=== PATIENT | female | born 1970 | race Caucasian/White ===

== ENCOUNTER → 2019-05-13 09:31 | Outpatient (BNVA) | payer OTHER, SELFPAY | PROVIDERS: Family Provider Nurse Practitioner; PCP Nurse Practitioner; Visit Provider Otolaryngology | DX: R26.89 Other abnormalities of gait and mobility (principal); H91.92 Unspecified hearing loss, left ear; F17.210 Nicotine dependence, cigarettes, uncomplicated | CPT/HCPCS: 99213; 99214 ==

== ENCOUNTER 2019-05-13 10:39 | Outpatient (REF) | payer OTHER, SELFPAY ==
[2019-05-13 12:01] LABS: Thyroid Stimulating Hormone 0.78 uIU/mL (0.27-4.20)
== END 2019-05-13 10:40 | disposition home or self-care (01) ==
LOC: LAB 10:39
PROVIDERS: Family Provider Nurse Practitioner; PCP Nurse Practitioner; Visit Provider Otolaryngology
DX: Z12.31 Encounter for screening mammogram for malignant neoplasm of breast (principal)
CPT/HCPCS: 36415; 84443

== ENCOUNTER → 2019-07-08 13:39 | Outpatient (BNVA) | payer OTHER, SELFPAY | PROVIDERS: Family Provider Nurse Practitioner; PCP Nurse Practitioner; Visit Provider Nurse Practitioner | DX: R05 Cough (principal); J45.909 Unspecified asthma, uncomplicated | CPT/HCPCS: 87400 ==

== ENCOUNTER 2019-11-28 11:48 | Outpatient (CLI) | payer OTHER, SELFPAY ==
--- NOTE | 2019-11-28 11:56 | XR_ITS ---
WS: [id number] HIP WITH PELVIS LEFT TECHNIQUE: 3 views of the left hip with pelvis CLINICAL INFORMATION: left hip pain COMPARISON: None. FINDINGS: Left hip is normal in appearance. No acute fractures. Normal pubic rami. Proximal left femur is nhung l. XR/XR hip LT 2-3V wo/w pel* [id number] IMPRESSION: Normal left hip.
== END 2019-11-28 11:49 | disposition home or self-care (01) ==
LOC: RADWPI 11:52
PROVIDERS: Family Provider Family Medicine; PCP Family Medicine; Visit Provider Family Medicine
DX: M25.552 Pain in left hip (principal)
CPT/HCPCS: 73502

== ENCOUNTER 2019-11-29 08:53 | Outpatient (CLI) | payer OTHER, SELFPAY | END 2019-11-29 08:54 | disposition home or self-care (01) | LOC: LAB 08:57 | PROVIDERS: Family Provider Family Medicine; PCP Family Medicine; Visit Provider Family Medicine | DX: M25.50 Pain in unspecified joint (principal); M16.12 Unilateral primary osteoarthritis, left hip | CPT/HCPCS: 85025; 85651; 86431 ==

== ENCOUNTER → 2019-12-22 13:22 | Outpatient (BNVA) | payer OTHER, SELFPAY | PROVIDERS: Family Provider Family Medicine; PCP Family Medicine; Referring Provider Family Medicine; Visit Provider Anesthesiology Pain Medicine | DX: M16.12 Unilateral primary osteoarthritis, left hip (principal); M47.816 Spondylosis without myelopathy or radiculopathy, lumbar region; M54.16 Radiculopathy, lumbar region; M54.9 Dorsalgia, unspecified; F17.210 Nicotine dependence, cigarettes, uncomplicated | CPT/HCPCS: 99204 ==

== ENCOUNTER → 2020-01-04 08:49 | Outpatient (BNVA) | payer OTHER, SELFPAY | PROVIDERS: Family Provider Family Medicine; PCP Family Medicine; Visit Provider Anesthesiology Pain Medicine | DX: G89.29 Other chronic pain (principal); M47.816 Spondylosis without myelopathy or radiculopathy, lumbar region; M54.16 Radiculopathy, lumbar region; M16.12 Unilateral primary osteoarthritis, left hip; M25.50 Pain in unspecified joint; M47.812 Spondylosis without myelopathy or radiculopathy, cervical region; M54.9 Dorsalgia, unspecified; F17.210 Nicotine dependence, cigarettes, uncomplicated | CPT/HCPCS: 99213; 99214 ==

== ENCOUNTER 2020-01-09 13:01 | Outpatient (CLI) | payer OTHER, SELFPAY ==
--- NOTE | 2020-01-09 13:06 | MR_ITS ---
WS: [id number] MRI LUMBAR SPINE NONCONTRAST TECHNIQUE: Sagittal T1, T2 and STIR imaging. Axial T1 and T2 imaging. CLINICAL INFORMATION: M54.16 Radiculopathy, lumbar region COMPARISON: None. FINDINGS: Mild lumbar curve. No acute compression. Small disc protrusions in the lower thoracic spine at T10-T1 1 and T11-T12. L1-L2: Normal. L2-L3: Normal. L3-L4: No significant disc bulging. Spinal canal and foramen are patent. Mild facet arthropathy. L4-L5: Small left foraminal protrusion with mild left foraminal narrowing. Right foramen is patent. M oderate facet arthropathy. L5-S1: Mild annular bulging with a tiny right pericentral protrusion. Slight encroachment on the righ t S1 nerve root. Spinal canal and foramen are patent. Mild facet arthropathy. Small disc protrusions in the thoracic spinal production crew supervisor imaging with mild central canal stenosis at T8-9. MR/MR lumbar spine wo con* [id number] IMPRESSION: 1. Mild lumbar curve. No acute compression. No high-grade central canal stenos is. 2. Small left foraminal protrusion L4-5 with mild left foraminal narrowing. 3. Shallow right pericentral protrusion L5-S1 encroaches on the right S1 nerve root. 4. Moderate facet arthropathy L3-L5. 5. Small central protrusions at T10-T11 and T11-T12. Additional small protrusi on at T8-T9 with mild central canal stenosis seen on the production crew supervisor imaging. 6. Partially visualized left ovarian cyst measuring 3.2 CCM. This can be follo wed up with ultrasound.
--- NOTE | 2020-01-09 13:45 | XR_ITS ---
WS: [id number] LUMBAR SPINE FLEXION AND EXTENSION TECHNIQUE: 3 views of the lumbar spine: Lateral neutral, flexion, and extension views. CLINICAL INFORMATION: pain COMPARISON: None. FINDINGS: Normal lumbar alignment on the neutral view. Mild flexion instability L4-5 with anterolisthesis measuring 3.1 mm. Normal alignment on extension. M oderate facet arthropathy L4-L5 and L5-S1. XR/XR lumbar spine f/e only [id number] IMPRESSION: 1. Mild flexion instability L4-5
== END 2020-01-09 13:02 | disposition home or self-care (01) ==
LOC: RADWPI 13:04
PROVIDERS: Family Provider Family Medicine; PCP Family Medicine; Visit Provider Anesthesiology Pain Medicine
DX: M53.2X6 Spinal instabilities, lumbar region (principal); M54.16 Radiculopathy, lumbar region; M51.26 Other intervertebral disc displacement, lumbar region; M51.27 Other intervertebral disc displacement, lumbosacral region; M47.816 Spondylosis without myelopathy or radiculopathy, lumbar region; M51.24 Other intervertebral disc displacement, thoracic region; N83.202 Unspecified ovarian cyst, left side
CPT/HCPCS: 72120; 72148

== ENCOUNTER → 2020-01-24 09:20 | Outpatient (BNVA) | payer OTHER, SELFPAY | PROVIDERS: Family Provider Family Medicine; PCP Family Medicine; Visit Provider Anesthesiology Pain Medicine | DX: G89.29 Other chronic pain (principal); M47.816 Spondylosis without myelopathy or radiculopathy, lumbar region; M51.17 Intervertebral disc disorders with radiculopathy, lumbosacral region; M54.9 Dorsalgia, unspecified; M47.812 Spondylosis without myelopathy or radiculopathy, cervical region; M16.12 Unilateral primary osteoarthritis, left hip; M25.50 Pain in unspecified joint; F17.210 Nicotine dependence, cigarettes, uncomplicated | CPT/HCPCS: 99214 ==

== ENCOUNTER 2020-01-24 12:31 | Emergency (ER) | payer OTHER, SELFPAY ==
[2020-01-24] VITALS (7 sets, daily range): BP systolic 151–193; BP diastolic 93–126; PULSE 67–93; RESP 14–18; TEMP 37.3; O2SAT 92–95; BMI 41.3
--- NOTE | 2020-01-24 13:00 | W.ED.GENADLT ---
HPI - General Adult General: Chief complaint: General Medical Stated complaint: HTN Time Seen by Provider: 01/24/20 12:59 Source: patient Mode of arrival: ambulatory Limitations: no limitations History of Present Illness: HPI narrative: Pt presents with complaints of BUCHANAN, vision disturbances, and elevated BP Onset (ago): day(s) (3) Associated symptoms: Reports headache(s) Review of Systems General: Reports: 10 or more systems reviewed and unremarkable except in HPI and below Eyes: Reports: blurry vision Neuro: Reports: headache(s); Denies: numbness in extremities PFSH ED PFSH: Medical History Anxiety Ataxia Bilateral impacted cerumen Bipolar 1 disorder CAD (coronary artery disease) CAVANAUGH (dyspnea on exertion) Encounter to establish care FH: cholecystectomy Flank pain, acute HTN (hypertension) Mild left ventricular systolic dysfunction Numbness and tingling in both hands ISHA (obstructive sleep apnea) Osteoarthritis of left hip Polyarthralgia PVC (premature ventricular contraction) [place] tick fever Smoker Status post left heart catheterization Surgical History H/O tubal ligation S/P arthroscopic surgery of right knee Family History Father Hypertension Cardiomyopathy Other Diabetes Heart disease Social History Smoking and tobacco status: current every day smoker cigarettes Alcohol intake: current Alcohol intake frequency: other Caregiver/support person: Yes Lives independently: Yes History of recent travel: No Female Reproductive History: Date of last menstrual period: 06/20/19 Physical Exam Const: COMMON NORMALS: no acute distress, patient oriented x3, no limitations and alert GENERAL APPEARANCE: cooperative and comfortable ORIENTATION/CONSCIOUSNESS: Yes awake, Yes oriented to person, Yes oriented to place and Yes oriented to time HENMT: COMMON NORMALS: normocephalic, atraumatic, external ears normal, EAC's normal, TM's normal bilaterally and Normal external nose present HEAD & SCALP: normal to inspection, normocephalic and atraumatic FACE & SINUS: normal facial exam, sinuses nontender and face symmetric NOSE: Normal external nose present, Normal nares present and No nasal discharge present EXTERNAL EAR: Yes external ears normal EXTERNAL AUDITORY CANAL: EAC's normal TYMPANIC MEMBRANE: TM's normal bilaterally MOUTH: Normal oral and palatal mucosa present, lip normal and tongue normal THROAT: posterior oropharynx normal, tonsils normal and uvula midline Eye: COMMON NORMALS: Equal, round and reactive pupils present, EOMs intact bilaterally and conjunctivae normal GENERAL EYE: appearance normal, both eyes and all related structures and normal light reflex EYELID: eyelids normal CONJUNCTIVA: Yes conjunctivae normal PUPIL: Yes Equal, round and reactive pupils present EOM: Yes EOM abnormal DIRECT OPHTHALMOSCOPY: Yes normal light reflex Neck/C-Spine: COMMON NORMALS: full ROM, no lymphadenopathy, supple, no meningeal signs, no JVD and Thyroid normal GENERAL: Yes normal visual inspection THYROID: Thyroid normal CERVICAL SPINE: Yes cervical ROM normal and Yes normal cervical lordosis Lymph: LYMPHATIC: no lymphadenopathy noted Chest: COMMONS NORMALS: normal inspection of the chest and normal palpation of entire chest wall Resp: COMMON NORMALS: normal respiratory effort, No retractions and clear to auscultation bilaterally AUSCULTATION: clear to auscultation bilaterally Cardio: COMMON NORMALS: no JVD, regular rate, regular rhythm, S1 normal heart sound present, S2 normal heart sound present, No gallops present (Cardio), No clicks present (Cardio), No murmurs present (Cardio), No rub (Cardio) and Peripheral pulses 2+ throughout RATE: regular rate RHYTHM: regular rhythm HEART SOUNDS: S1 normal heart sound present and S2 normal heart sound present PERIPHERAL PULSES: Peripheral pulses 2+ throughout GI: COMMON NORMALS: Normal to inspection, nondistended, normoactive bowel sounds present, Soft to palpation, non-tender and no masses PALPATION: Yes Soft to palpation : COMMON NORMALS: Yes no CVA tenderness and Yes normal external appearance BLADDER/KIDNEY EXAM: Yes no CVA tenderness Back/Pelvis: COMMON NORMALS: no CVA tenderness, thoracic and lumbar spine normal to inspection, no thoracic nor lumbar tenderness and thoraco-lumbar ROM normal Extremity: COMMON NORMALS: normal to inspection, full ROM, capillary refill normal, no joint enlargement, no clubbing, cyanosis or edema, no calf tenderness and no pedal edema GENERAL: Yes normal exam except as noted Neuro: COMMON NORMALS: patient oriented x3, moves all extremities, no focal motor deficits, no sensory deficits noted and gait normal SENSORIUM/ORIENTATION: Yes alert, Yes oriented to person, Yes oriented to place and Yes oriented to time MENINGEAL SIGNS: Yes no meningeal signs Psych: COMMON NORMALS: mental status grossly normal, Normal thought process present, cooperative, normal affect, speech normal and activity/motor behavior normal SPEECH: Yes normal speech THOUGHT PROCESS: Normal thought process present Skin: COMMON NORMALS: no rashes or lesions noted, no wounds and turgor normal GENERAL SKIN EXAM: no rashes or lesions noted and turgor normal Course ED course: Pt presents to ER with complaints of BUCHANAN and elevated BP. She states this is not uncommon for her as she has essential, accelerated HTN. Her naphthalene operator helper Dr. Barahona is out of town currently but pt came per the advise of her naphthalene operator helper in [place]. CT head ordered and clonidine orally. EKG normal sinus rhythm. Reevaluation(s): Reevaluation #1: CT neg for any acute findings; otomastoiditis present and progressive since last CT. ENT referral will be made for follow up. Attempting IV hydralizine as clonidine was not helpful. Will recheck BP shortly after meds given. Time: 15:20 Reevaluation #2: BP responded to hydralizine, will advise pt to follow up with cardiology and pcp and inquire about adding to her regimen if they see fit. Return if worsening in symptoms. Time: 16:03 Vital Signs: Vital signs: Vital Signs Temperature 99.1 F 01/24/20 12:53 Pulse Rate 67 01/24/20 15:50 Respiratory Rate 18 01/24/20 15:50 Blood Pressure 159/102 01/24/20 16:01 Pulse Oximetry 93 01/24/20 15:50 MDM - General Adult Lab Data: Labs: Lab Results 01/24/20 01/24/20 01/24/20 Range/Units 13:07 13:07 13:07 WBC 10.8 H (4.0-10.0) 10^3/ uL RBC 4.83 (4.1-5.3) 10^6/u L Hgb 13.7 (11.5-15.3) g/dL Hct 43.6 (37.0-47.0) % MCV 90.3 (81-99) fL MCH 28.4 (28.0-34.0) pg MCHC 31.4 (30.0-36.0) g/dL RDW 13.0 (12.1-15.1) % Plt Count 321 (130-400) 10^3/c mm MPV 9.5 (7.4-10.4) fL Neut % (Auto) 62.0 % Lymph % (Auto) 28.6 % [place] % (Auto) 6.8 % Eos % (Auto) 1.7 % Baso % (Auto) 0.4 % Neut # (Auto) 6.69 (1.8-7.7) 10^3/u L Lymph # (Auto) 3.1 (0.8-4.8) 10^3/u L [place] # (Auto) 0.7 (0.2-0.9) 10^3/u L Eos # (Auto) 0.2 (0.0-0.8) 10^3/u L Baso # (Auto) 0.0 (0.0-0.1) 10^3/u L Nucleated RBC % (a uto) 0 % Nucleated RBCs # 0.0 /100WBC Sodium 139 (136-145) mmol/L Potassium 4.1 (3.5-5.1) mmol/L Chloride 102 (98-107) mmol/L Carbon Dioxide 25 (22-29) mmol/L Anion Gap 16.1 (5-19) BUN 13 (6-20) mg/dL Creatinine 0.9 (0.5-0.9) mg/dL GFR Calculation 66.8 L (90-130) mL/min Glucose 117 H (65-115) mg/dL Calculated Osmolal ity 289 (285-295) mOsm/k g Calcium 9.6 (8.5-10.5) mg/dL Total Bilirubin 0.2 (0.15-1.2) mg/dL AST 18 (0-32) U/L ALT 22 (0-33) U/L Alkaline Phosphata se 88 (35-105) IU/L Total Protein 7.2 (6.6-8.7) g/dL Albumin 4.1 (3.5-5.2) g/dL Globulin 3.1 (1.3-4.6) g/dL Urine Color Yellow (Yellow) Urine Appearance Clear (CLEAR) Urine pH 5.0 (5-7) Ur Specific Gravit y 1.020 (1.005-1.030) Urine Protein Neg (Negative) Urine Glucose (UA) Norm (Normal) Urine Ketones Negative (Negative) Urine Blood Neg (Negative) Urine Nitrate Negative (Negative) Urine Bilirubin Neg (Negative) Urine Urobilinogen Norm (Negative) mg/dL Ur Leukocyte Rosario ase Negative (Negative) Imaging Data^: CT Head: Radiologist's impression: [address] [place] [address] CT Scan Report Signed Patient: Jennifer Ruiz Unit #: [id number] : 1970 Age/Sex: 49 / F ADM Date: 01/24/20 Loc: ER Room/Bed: Attending Dr: Ordering Provider/Ordering MD: Jessica Whipple NP Date of Service: 01/24/20 Procedure(s): CT head wo con* [id number] Accession Number(s): [id number] Report Number: [id number] WS: [id number] CT HEAD NONCONTRAST HISTORY: Headache, hypertension. TECHNIQUE: Contiguous axial imaging performed through the brain in 2.5 mm imaging. Bone and soft tissue windows. Sagittal and coronal reformats reviewed. All CT scans at [facility] use at least one of these dose optimization techniques: automated exposure control; mA and/or kV adjustment per patient size (includes targeted exams where dose is matched to clinical indication); or iterative reconstruction. DLP: 742.02 mGy.cm COMPARISON: 11/11/2018 No acute intracranial hemorrhage, midline shift or mass effect. No atrophy or prior infarcts or herniation. Ventricles: Normal size with no hydrocephalus. Paranasal sinuses: As visualized are clear. Mastoid air cells: Increased fluid and soft tissue filling nearly the complete LEFT mastoid air cell. Additional soft tissue extends to encase the LEFT inner ear ossicles. This does appear to progress since the prior study. Calvarium and scalp: Skull is intact with no soft tissue edema or swelling. CT/CT head wo con* [id number] IMPRESSION: 1. Negative noncontrast head CT. 2. LEFT otomastoiditis. Progressed since 11/11/2018 Dictated By: Noris Garland DO Signed By: Noris Garland DO Signed Date/Time: 01/24/20 1333 DD/ 1330 Discharge Plan Discharge Patient Disposition: Home Clinical Impression: HTN (hypertension) Condition: Stable Prescriptions: New hydralazine 50 mg tablet 50 mg PO BID Qty: 10 RF: 0 No Action gabapentin 600 mg tablet 600 mg PO TID Qty: 90 RF: 0 tizanidine 4 mg tablet 4 mg PO BID PRN (Reason: muscle spasticity) Qty: 60 RF: 0 carvedilol 12.5 mg tablet 6.25 mg PO BID RF: 0 aspirin [Adult Aspirin Regimen] 81 mg tablet,delayed release (DR/EC) 81 mg PO DAILY RF: 0 magnesium oxide 240 mg magnesium powder in packet 600 mg PO DAILY RF: 0 furosemide [Lasix] 40 mg tablet 40 mg PO DAILY RF: 0 albuterol sulfate [ProAir HFA] 90 mcg/actuation HFA aerosol inhaler See Rx Instructions INHALATION .COMPLEX PRN (Reason: shortness of breath or wheezing) Qty: 8.5 RF: 0 lisinopril 20 mg tablet 20 mg PO BID RF: 0 fluticasone propionate [Flonase Allergy Relief] 50 mcg/actuation spray,suspension 1 spray INTRANASAL Q12H Qty: 9.9 RF: 1 Discharge Orders: Discharge Order (Routine); Ordered 01/24/20 Ordered By: Jessica Whipple Referrals: Esa Diop MD [Primary Care Provider] - Discharge Diet: Usual diet Discharge Activity: Increase activity as tolerated Activity Restrictions/Additional Instructions: Please call your naphthalene operator helper for follow up. Hydralizine can be utilized as an as needed medication instead of clonidine but please return if unable to control BP or worsening in symptoms. Coding Level of Care Code ED Associate Manager for Yashg Fwd Exam Comprehensive
--- NOTE | 2020-01-24 13:05 | CT_ITS ---
WS: [id number] CT HEAD NONCONTRAST HISTORY: Headache, hypertension. TECHNIQUE: Contiguous axial imaging performed through the brain in 2.5 mm imaging. Bone and soft tiss ue windows. Sagittal and coronal reformats reviewed. All CT scans at [facility] use at ast one of these dose optimization techniques: automated exposure control; mA and/or kV adjustment pe r patient size (includes targeted exams where dose is matched to clinical indication); or iterative r econstruction. DLP: 742.02 mGy.cm COMPARISON: 11/11/2018 No acute intracranial hemorrhage, midline shift or mass effect. No atrophy or prior infarcts or herniation. Ventricles: Normal size with no hydrocephalus. Paranasal sinuses: As visualized are clear. Mastoid air cells: Increased fluid and soft tissue filling nearly the complete LEFT mastoid air cell. Additional soft tissue extends to encase the LEFT inner ear ossicles. This does appear to progress s kayla the prior study. Calvarium and scalp: Skull is intact with no soft tissue edema or swelling. CT/CT head wo con* [id number] IMPRESSION: 1. Negative noncontrast head CT. 2. LEFT otomastoiditis. Progressed since 11/11/2018
--- NOTE | 2020-01-24 13:06 | ECG_ITS ---
[facility] Test Date: 2020-01-24 Pat Name: Jennifer Ruiz Department: Room: Gender: Female Title Assistant: TOM PIKEB: 1970 Requested By: Jessica Whipple Order Number: [id number] Thiago MD: Rogers King M.D. Measurements Intervals [place] Rate: 86 P: 40 CT: 128 QRS: 11 QRSD: 105 T: 12 QT: 357 QTc: 428 Interpretive Statements SINUS RHYTHM Compared to ECG 11/12/2018 02:31:01 Ventricular premature complex(es) no longer present Electronically Signed On 01-25-2020 18:35:17 CDT by Rogers King M.D. [id number]
[2020-01-24] MEDS: cloNIDine 0.1 mg Tablet PO (13:10)
[2020-01-24 13:12] LABS: Basophils % 0.4 %; Eosinophils # 0.2 10^3/uL (0.0-0.8); Eosinophils % 1.7 %; Hematocrit 43.6 % (37.0-47.0); Hemoglobin 13.7 g/dL (11.5-15.3); Lymphocytes # 3.1 10^3/uL (0.8-4.8); Lymphocytes % 28.6 %; Mean Corpuscular HGB Conc 31.4 g/dL (30.0-36.0); Mean Corpuscular Hemoglobin 28.4 pg (28.0-34.0); Mean Corpuscular Volume 90.3 fL (81-99); Mean Platelet Volume 9.5 fL (7.4-10.4); Monocytes # 0.7 10^3/uL (0.2-0.9); Monocytes % 6.8 %; Neutrophils # 6.69 10^3/uL (1.8-7.7); Nucleated Red Blood Cells % 0 %; Platelet Count 321 10^3/cmm (130-400); Red Blood Count 4.83 10^6/uL (4.1-5.3); White Blood Count 10.8 10^3/uL (4.0-10.0)
[2020-01-24 13:38] LABS: Add Urine Microscopic? NO
[2020-01-24 13:57] LABS: Bilirubin Urine Neg (Negative); Blood Urine Neg (Negative); Glucose Urine UA Norm (Normal); Ketones Urine Negative (Negative); Leukocyte Esterase Urine Negative (Negative); Nitrate Urine Negative (Negative); Protein Urine Neg (Negative); Urine Appearance Clear (CLEAR); Urine Color Yellow (Yellow); Urobilinogen Urine Norm (Negative)
[2020-01-24 14:16] LABS: Alanine Aminotransferase 22 U/L (0-33); Albumin Level 4.1 g/dL (3.5-5.2); Alkaline Phosphatase 88 IU/L (35-105); Anion Gap 16.1 (5-19); Aspartate Amino Transferase 18 U/L (0-32); Blood Urea Nitrogen 13 mg/dL (6-20); Calcium 9.6 mg/dL (8.5-10.5); Carbon Dioxide 25 mmol/L (22-29); Chloride 102 mmol/L (98-107); Creatinine Clr Calc Pharmacy 109.2415; Globulin 3.1 g/dL (1.3-4.6); Glomerular Filtration Rate 66.8 mL/min (90-130); Glucose 117 mg/dL (65-115); Osmolality Calculated 289 mOsm/kg (285-295); Potassium 4.1 mmol/L (3.5-5.1); Sodium 139 mmol/L (136-145); Total Bilirubin 0.2 mg/dL (0.15-1.2); Total Protein 7.2 g/dL (6.6-8.7)
[2020-01-24] MEDS: hyDRALAzine 20 mg/mL INJ 1 mL IVP (15:51)
--- NOTE | 2020-01-25 09:46 | DCPLANNER ---
nursing agency manager had message to schedule a follow up appointment for patient with Dr. Garrido, ENT. nursing agency manager faxed patients information to the office of Dr. Garrido, will call for appointment information. Clinic will call patient with appointment information.
--- NOTE | 2020-01-25 13:03 | DCPLANNER ---
Charissa from Dr. Adkins office called continuous pillowcase cutter with appointment information. A follow up appointment has been scheduled for Thursday, February 06, 2020 at 4:[address] Garrido. Clinic has not been able to reach patient at this time, a letter was mailed to patient with appointment information.
--- NOTE | 2020-02-16 07:53 | DCPLANNER ---
Patient had an appointment scheduled for 02.06.[address] Garrido - patient did attend appointment.
== END 2020-01-24 16:17 | disposition home or self-care (01) ==
PROVIDERS: Family Medicine; Emergency Provider Nurse Practitioner Family; PCP Family Medicine
DX: I10 Essential (primary) hypertension (principal); Z79.82 Long term (current) use of aspirin; I25.10 Atherosclerotic heart disease of native coronary artery without angina pectoris; F17.210 Nicotine dependence, cigarettes, uncomplicated
CPT/HCPCS: 12345; 36415; 70450; 80053; 81003; 85025; 93005; 96374; 96375; 96376; 99282; 99283; J0360

== ENCOUNTER 2020-02-20 14:50 | Outpatient (CLI) | payer OTHER, SELFPAY ==
--- NOTE | 2020-02-20 14:54 | XR_ITS ---
WS: [id number] Exam: XR cervical spine 4-5V [id number] Date/Time of Exam: 02/20/2020 2:54 PM Reason For Exam: pain No acute fracture or dislocation. Minimal degenerative disc narrowing at C4-5 and C5-6. Facet DJD at all levels. The odontoid is intact. Mild uncovertebral spurring. The bony neuroforamina appear to be grossly patent bilaterally. Paraspinal soft tissues are unremarkable. XR/XR cervical spine 4-5V [id number] IMPRESSION: 1. Degenerative changes of the C-spine. No acute fracture or malalignment.
== END 2020-02-20 14:51 | disposition home or self-care (01) ==
LOC: RADWPI 14:53
PROVIDERS: Family Provider Family Medicine; PCP Family Medicine; Visit Provider Anesthesiology Pain Medicine
DX: M54.2 Cervicalgia (principal)
CPT/HCPCS: 72050

== ENCOUNTER → 2020-02-22 09:35 | Outpatient (BNVA) | payer OTHER, SELFPAY | PROVIDERS: Family Provider Family Medicine; PCP Family Medicine; Visit Provider Anesthesiology Pain Medicine | DX: G89.29 Other chronic pain (principal); M47.816 Spondylosis without myelopathy or radiculopathy, lumbar region; M51.17 Intervertebral disc disorders with radiculopathy, lumbosacral region; M54.9 Dorsalgia, unspecified; M47.812 Spondylosis without myelopathy or radiculopathy, cervical region; M16.12 Unilateral primary osteoarthritis, left hip; G56.00 Carpal tunnel syndrome, unspecified upper limb; F17.210 Nicotine dependence, cigarettes, uncomplicated | CPT/HCPCS: 99214; 99215 ==

== ENCOUNTER → 2020-04-04 10:40 | Outpatient (BNVA) | payer OTHER, SELFPAY | PROVIDERS: Family Provider Family Medicine; PCP Family Medicine; Visit Provider Anesthesiology Pain Medicine | DX: G89.29 Other chronic pain (principal); M47.816 Spondylosis without myelopathy or radiculopathy, lumbar region; M51.17 Intervertebral disc disorders with radiculopathy, lumbosacral region; M54.9 Dorsalgia, unspecified; M47.812 Spondylosis without myelopathy or radiculopathy, cervical region; M16.12 Unilateral primary osteoarthritis, left hip; M25.50 Pain in unspecified joint; G56.00 Carpal tunnel syndrome, unspecified upper limb; F17.210 Nicotine dependence, cigarettes, uncomplicated | CPT/HCPCS: 99212; 99214 ==

== ENCOUNTER → 2020-06-27 10:22 | Outpatient (BNVA) | payer OTHER, SELFPAY | PROVIDERS: Family Provider Family Medicine; PCP Family Medicine; Visit Provider Anesthesiology Pain Medicine | DX: G89.29 Other chronic pain (principal); M51.17 Intervertebral disc disorders with radiculopathy, lumbosacral region; M47.816 Spondylosis without myelopathy or radiculopathy, lumbar region; M54.9 Dorsalgia, unspecified; M47.812 Spondylosis without myelopathy or radiculopathy, cervical region; M16.12 Unilateral primary osteoarthritis, left hip; G56.00 Carpal tunnel syndrome, unspecified upper limb; F17.210 Nicotine dependence, cigarettes, uncomplicated | CPT/HCPCS: 99214 ==

== ENCOUNTER → 2020-09-19 10:51 | Outpatient (BNVA) | payer OTHER, SELFPAY | PROVIDERS: Family Provider Family Medicine; PCP Family Medicine; Visit Provider Anesthesiology Pain Medicine | DX: G89.29 Other chronic pain (principal); M54.9 Dorsalgia, unspecified; M54.16 Radiculopathy, lumbar region; M47.816 Spondylosis without myelopathy or radiculopathy, lumbar region; M47.812 Spondylosis without myelopathy or radiculopathy, cervical region; M16.12 Unilateral primary osteoarthritis, left hip; F17.210 Nicotine dependence, cigarettes, uncomplicated | CPT/HCPCS: 99213 ==

== ENCOUNTER → 2020-12-12 10:21 | Outpatient (BNVA) | payer OTHER, SELFPAY | PROVIDERS: Family Provider Family Medicine; PCP Family Medicine; Visit Provider Anesthesiology Pain Medicine | DX: G89.29 Other chronic pain (principal); M51.17 Intervertebral disc disorders with radiculopathy, lumbosacral region; M47.816 Spondylosis without myelopathy or radiculopathy, lumbar region; M47.812 Spondylosis without myelopathy or radiculopathy, cervical region; M16.12 Unilateral primary osteoarthritis, left hip; M79.604 Pain in right leg; G56.00 Carpal tunnel syndrome, unspecified upper limb; F17.210 Nicotine dependence, cigarettes, uncomplicated | CPT/HCPCS: 99214 ==

== ENCOUNTER → 2020-12-21 12:47 | Outpatient (BNVA) | payer OTHER, SELFPAY | PROVIDERS: Family Provider Family Medicine; PCP Family Medicine; Visit Provider Anesthesiology Pain Medicine | DX: M54.16 Radiculopathy, lumbar region (principal); F17.210 Nicotine dependence, cigarettes, uncomplicated | CPT/HCPCS: 64483; 64484; J1040; J3490 ==

== ENCOUNTER → 2021-01-07 08:37 | Outpatient (BNVA) | payer OTHER, SELFPAY | PROVIDERS: Family Provider Family Medicine; PCP Family Medicine; Visit Provider Anesthesiology Pain Medicine | DX: G89.29 Other chronic pain (principal); M54.16 Radiculopathy, lumbar region; M47.816 Spondylosis without myelopathy or radiculopathy, lumbar region; M16.12 Unilateral primary osteoarthritis, left hip; M47.812 Spondylosis without myelopathy or radiculopathy, cervical region; M79.605 Pain in left leg; M25.511 Pain in right shoulder; M25.512 Pain in left shoulder | CPT/HCPCS: 99213 ==

== ENCOUNTER → 2021-04-03 08:55 | Outpatient (BNVA) | payer OTHER, SELFPAY | PROVIDERS: Family Provider Family Medicine; PCP Family Medicine; Visit Provider Anesthesiology Pain Medicine | DX: G89.29 Other chronic pain (principal); M51.17 Intervertebral disc disorders with radiculopathy, lumbosacral region; M47.816 Spondylosis without myelopathy or radiculopathy, lumbar region; M47.812 Spondylosis without myelopathy or radiculopathy, cervical region; M25.511 Pain in right shoulder; M25.512 Pain in left shoulder; M25.551 Pain in right hip; M16.12 Unilateral primary osteoarthritis, left hip; M25.50 Pain in unspecified joint; G56.00 Carpal tunnel syndrome, unspecified upper limb; M25.572 Pain in left ankle and joints of left foot | CPT/HCPCS: 99214 ==

== ENCOUNTER 2021-05-01 15:36 | Outpatient (RCR) | payer OTHER, SELFPAY | END 2021-05-27 23:59 | disposition home or self-care (01) | LOC: SPT 15:36 | PROVIDERS: PCP Family Medicine; Referring Provider Anesthesiology Pain Medicine; Visit Provider Anesthesiology Pain Medicine | DX: M25.511 Pain in right shoulder (principal) | CPT/HCPCS: 97110; 97161 ==

== ENCOUNTER 2021-05-28 06:00 | Outpatient (RCR) | payer OTHER, SELFPAY | END 2021-06-24 23:59 | disposition home or self-care (01) | LOC: SPT 06:00 | PROVIDERS: PCP Family Medicine; Referring Provider Anesthesiology Pain Medicine; Visit Provider Anesthesiology Pain Medicine | DX: M25.511 Pain in right shoulder (principal) | CPT/HCPCS: 97110; 97140 ==

== ENCOUNTER → 2022-09-15 10:58 | Outpatient (BNVA) | payer OTHER, SELFPAY | PROVIDERS: PCP Family Medicine; Visit Provider Family Medicine | DX: J02.0 Streptococcal pharyngitis (principal) | CPT/HCPCS: 87880 ==

== ENCOUNTER → 2022-12-11 12:54 | Outpatient (BNVA) | payer OTHER, SELFPAY | PROVIDERS: PCP Family Medicine; Visit Provider Orthopaedic Surgery | DX: M50.321 Other cervical disc degeneration at C4-C5 level (principal); M50.322 Other cervical disc degeneration at C5-C6 level; M48.02 Spinal stenosis, cervical region; M47.812 Spondylosis without myelopathy or radiculopathy, cervical region | CPT/HCPCS: 72050 ==

== ENCOUNTER 2023-01-28 08:49 | Outpatient (CLI) | payer OTHER, SELFPAY ==
--- NOTE | 2023-01-28 08:59 | MM_ITS ---
WS: [id number] BILATERAL SCREENING DIGITAL TOMOSYNTHESIS MAMMOGRAM WITH CAD HISTORY: Z00.00 - Encounter for general adult medical examination ... COMPARISON: None available. Bilateral CC and MLO views with tomosynthesis and synthetic mammography submitted. Computer aided det ection analyzed. Breast composition: There are scattered areas of fibroglandular density. No suspicious masses, microc alcifications or architectural distortion. IMPRESSION: MM/[place] [id number] BI-RADS: 1-Negative FOLLOW UP: 1 Year Follow-up
== END 2023-01-28 08:50 | disposition home or self-care (01) ==
LOC: RAD 08:51
PROVIDERS: PCP Family Medicine; Visit Provider Family Medicine
DX: Z12.31 Encounter for screening mammogram for malignant neoplasm of breast (principal)
CPT/HCPCS: 77063; 77067

== ENCOUNTER 2023-02-25 09:18 | Outpatient (CLI) | payer OTHER, SELFPAY ==
--- NOTE | 2023-02-25 | MR_ITS ---
WS: [id number] MRI CERVICAL SPINE with and without contrast HISTORY: CERVICALIGA COMPARISON: Cervical spine radiographs 12/11/2022 Technique: Multiplanar, multisequence noncontrast imaging of the cervical spine. Postcontrast imaging , MultiHance 20 mL IV. Mild increase in the cervical lordosis. No acute fractures or marrow edema. Signal within the cervical cord is normal. Visualized posterior fossa is unremarkable. Craniocervical junction, C1 and C2 relationship, odontoid process and soft tissues are normal. C2-C3: Shallow central disc protrusion. No high-grade stenosis. C3-C4: Moderate RIGHT foramen osteophyte causing mild narrowing. C4-C5: Small bilateral foraminal osteophytes, RIGHT greater than LEFT. Mild bilateral foraminal steno sis. C5-C6: Diffuse annular disc bulging. Moderate osteophytic ridging. Disc and osteophyte encroachment u antoinette the ventral thecal sac. There is moderate central and bilateral foraminal stenosis, RIGHT greater than LEFT. C6-C7: Mild annular disc bulging with mild bilateral foraminal osteophytes. Slightly greater on the L EFT. Mild central and bilateral foraminal stenosis. C7-T1: Normal. Postcontrast imaging is negative for abnormal areas of enhancement. No discitis or osteomyelitis. No soft tissue masses. IMPRESSION: 1. C5-6: Moderate central and bilateral foraminal stenosis, RIGHT greater than LEFT. Due to disc and osteophyte disease. 2. C6-7: Mild central and bilateral foraminal stenosis. 3. C2-3: Shallow central disc protrusion. 4. C3-4: Mild RIGHT foramen osteophyte. 5. C4-5: Mild bilateral foraminal stenosis. 6. C6-7: Mild central and bilateral foraminal stenosis.
[2023-02-25] MEDS: gadobenate dimeglumine 20 mL vial IV (10:28)
== END 2023-02-25 09:19 | disposition home or self-care (01) ==
PROVIDERS: PCP Family Medicine; Visit Provider Orthopaedic Surgery
DX: M48.02 Spinal stenosis, cervical region (principal); M25.78 Osteophyte, vertebrae; M50.21 Other cervical disc displacement, high cervical region
CPT/HCPCS: 72156; A9577

== ENCOUNTER → 2024-05-30 16:34 | Outpatient (BNVA) | payer OTHER, SELFPAY | PROVIDERS: PCP Family Medicine; Visit Provider Family Medicine | DX: M19.90 Unspecified osteoarthritis, unspecified site (principal); N81.10 Cystocele, unspecified; E66.9 Obesity, unspecified; F41.9 Anxiety disorder, unspecified; M25.50 Pain in unspecified joint | CPT/HCPCS: 80053; 84443; 84550; 85025; 85651; 86140 ==

== ENCOUNTER → 2024-07-22 13:45 | Outpatient (BNVA) | payer OTHER, SELFPAY | PROVIDERS: PCP Family Medicine; Visit Provider Obstetrics & Gynecology | DX: N81.10 Cystocele, unspecified (principal); Z01.419 Encounter for gynecological examination (general) (routine) without abnormal findings | CPT/HCPCS: 81000; 87624 ==

== ENCOUNTER → 2024-08-02 15:15 | Outpatient (BNVA) | payer OTHER, SELFPAY | PROVIDERS: PCP Family Medicine; Visit Provider Obstetrics & Gynecology | DX: N94.10 Unspecified dyspareunia (principal); R93.89 Abnormal findings on diagnostic imaging of other specified body structures | CPT/HCPCS: 76830 ==

== ENCOUNTER → 2024-08-29 16:46 | Outpatient (BNVA) | payer OTHER, SELFPAY | PROVIDERS: PCP Family Medicine; Visit Provider Family Medicine | DX: E79.0 Hyperuricemia without signs of inflammatory arthritis and tophaceous disease (principal); E66.9 Obesity, unspecified; N81.9 Female genital prolapse, unspecified | CPT/HCPCS: 80053; 84550; 85025 ==

== ENCOUNTER → 2024-10-31 15:22 | Outpatient (BNVA) | payer OTHER, SELFPAY | PROVIDERS: PCP Family Medicine; Visit Provider Obstetrics & Gynecology | DX: R93.89 Abnormal findings on diagnostic imaging of other specified body structures (principal) | CPT/HCPCS: 76830 ==

== ENCOUNTER 2025-01-28 14:13 | Emergency (ER) | payer OTHER, SELFPAY ==
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
[2025-01-28 14:19] VITALS: BP 152/108; PULSE 88; RESP 17; TEMP 36.6; O2SAT 94; BMI 34.8
--- OUTSIDE RECORDS SUMMARY | 2025-01-28 14:21 | XMS_ITS | Clinical Summary ---
Author Organization [facility] Address [address] [place] [address] Phone Care Team Providers Care Bench Lay Out Technician Name Role Phone Unavailable Primary Care Provider Unavailabl e Allergies Active Allergy Reactions Criticality Noted Date Comments Adhesive Rash Low 09/19/2024 Latex Rash Low 09/19/2024 Medications lisinopriL (PRINIVIL) 20 mg tablet Take 25 mg by mouth 2 times daily. Active carvediloL (COREG) 6.25 mg tablet Take 6.25 mg by mouth 2 times daily with meals. Active hydroCHLOROthia zide 25 mg tablet Take 25 mg by mouth daily. Active pregabalin (LYRICA) 50 mg Capsule Take 50 mg by mouth every 12 hours. Active aspirin (ZELALEM CHEWABLE) 81 mg Tablet, Chewable Take 81 mg by mouth daily. Active magnesium OXIDE 500 mg magnesium Tablet Take 600 mg by mouth daily. Active ALPRAZolam (XANAX) 0.25 mg tablet Take 0.25 mg by mouth nightly as needed for Anxiety. Active Active Problems Problem Noted Date Diagnosed Date Recurrent acute suppurative otitis media without spontaneous rupture of tympanic membrane of both sides 09/19/2024 Streptococcal pharyngitis 09/19/2024 Social History Tobacco Use Types Packs/Day Years Used Date Smoking Tobacco: Every Day Cigarettes Smokeless Tobacco: Never Tobacco Cessation:Ready to Q uit: Not Asked; Counseling Given: Not Answered Alcohol Use Standard Drinks/Week Comments Yes 1 (1 standard drink = 0.6 oz pur e alcohol) occasionally Feeling Safe Answer Date Recorded Are you in a relationship wi th someone who hurts you emotionally and/or physically? No 09/19/2024 Comments No Sex and Gender Information Value Date Recorded Sex Assigned at Not on file Legal Sex Female 8:19 AM [employer] Gender Identity Not on file Sexual Orientation Not on file Last Filed Vital Signs Vital Sign Reading Time Taken Comments Blood Pressure 166/104 09/19/2024 10:39 AM CDT Pulse 80 09/19/2024 10:39 AM CDT Temperature 35.7 C (96.2 F) 09/19/2024 10:39 AM CDT Respiratory Rate 16 09/19/2024 10:3 9 AM CDT Oxygen Saturation 95% 09/19/2024 10: 39 AM CDT Inhaled Oxygen Concentration - - Weight 107.3 kg (236 lb 9.6 oz) 025 10:39 AM CDT Height 172.7 cm (5' 8 ) 09/19/2024 10:3 9 AM CDT Body Mass Index 35.97 09/19/2024 10:39 AM CDT Plan of Treatment Health Maintenance Due Date Last Done Comments Pre-Diabetes and Diabetes Screening 1971 DTAP/TDAP/TD VACCINES (1 - Tdap) 1990 HEPATITIS B VACCINES (1 of 3 - 19+ 3-dose series) 01/26 HPV/Cotest (21-29) 02/14/1992 CERVICAL CANCER SCREENING 2001 HPV/Cotest (30-65) 2001 PAP SMEAR 2001 BREAST CANCER SCREENING 2011 COLORECTAL SCREENING 02/14/2016 Colorectal Cancer Screening 02/14/2016 FIT-DNA Q 3 years 02/14/2016 FIT/FOBT Q 1 year 02/14/2016 Flex Sig/CT Colonography Q 5 years 02/14/2016 ZOSTER VACCINE (1 of 2) 2021 INFLUENZA VACCINE (#1) 2024 Insurance [facility] [employer]
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
[2025-01-28] MEDS: ondansetron 2 mg/ML SDV 2 mL 4 MG IM (14:28)
[2025-01-28 14:30] VITALS: RESP 18; O2SAT 99
[2025-01-28] MEDS: morphine 4 mg/mL SDV 1 mL IM (14:30)
[2025-01-28 14:57] VITALS: PULSE 87; O2SAT 91
[2025-01-28 15:38] VITALS: BP 147/95; PULSE 87; O2SAT 100
== END 2025-01-28 15:39 | disposition home or self-care (01) ==
PROVIDERS: Emergency Provider Emergency Medicine; PCP Family Medicine
DX: S13.4XXA Sprain of ligaments of cervical spine, initial encounter (principal); V89.2XXA Person injured in unspecified motor-vehicle accident, traffic, initial encounter; Z79.82 Long term (current) use of aspirin; I25.10 Atherosclerotic heart disease of native coronary artery without angina pectoris; I10 Essential (primary) hypertension
CPT/HCPCS: 70450; 72125; 72128; 72131; 73110; 96372; 99284; J2270; J2405